=== PATIENT | male | born 1990 | race Two or more races ===

== ENCOUNTER 2017-12-30 02:39 | Emergency (ER) | payer SELFPAY ==
[~2017-12-30] VITALS: Ht 180.3 cm; Wt 79.8 kg
[2017-12-30 02:41] VITALS: Ht 180.3 cm; Wt 79.8 kg
[2017-12-30 03:19] VITALS: BP 121/77
== END 2017-12-30 03:19 | disposition other institution (70) ==
LOC: ED 02:39
DX: R42 Dizziness and giddiness (principal); E11.9 Type 2 diabetes mellitus without complications
CPT/HCPCS: 82962

== ENCOUNTER 2017-12-30 02:39 | Emergency (ER) | payer OTHER | END 2017-12-30 03:19 | disposition other institution (70) | LOC: ED 02:39 | DX: Z02.89 Encounter for other administrative examinations (principal) ==